=== PATIENT | male | born 1950 | race Caucasian/White ===

== ENCOUNTER 2017-02-05 14:32 | Emergency (ER) | payer OTHER ==
[2017-02-05 14:46] VITALS: TEMP 98.4; BMI 25.7
--- NOTE | 2017-02-05 15:14 | PDOC ---
History of Present Illness - General Chief Complaint: Hemorrhoids Stated Complaint: POSS. HEMORROIDES Time Seen by Provider: 02/05/17 15:07 History Source: Patient - History of Present Illness Initial Comments: 02/05/17 15:41 66M with pmh of controlled dm2 present to the ED complaining of chronic non- bleeding prolapsed external hemorrhoids. Patient states that he had them for the past year but got worse and worse for the past 3 weeks. Was given by his PCP an appointment to a clinic to evaluate blood work for surgery referral due next Monday . No constipation, soft stools. No straining on the toilet, no heavy lifting at work. 02/05/17 16:02 02/05/17 16:09 Past History - Past Medical History Allergies/Adverse Reactions: Allergies Allergy/AdvReac Type Severity Reaction Status Date / Time No Known Allergies Allergy Verified 02/05/17 14:46 Home Medications: Ambulatory Orders NK [No Known Home Medication] 02/05/17 Diabetes: Yes - Suicide/Smoking/Psychosocial Hx Smoking History: Never smoked Hx Alcohol Use: No Drug/Substance Use Hx: No Review of Systems - Review of Systems Able to Perform ROS?: Yes Is the patient limited O[place]i proficient: Yes Constitutional: No: Symptoms Reported HEENTM: No: Symptoms Reported Respiratory: No: Symptoms reported Cardiac (ROS): No: Symptoms Reported ABD/GI: No: Symptoms Reported, Blood Streaked Bowels, Constipated, Diarrhea, Rectal Bleeding : No: Symptoms Reported Musculoskeletal: No: Symptoms Reported Integumentary: No: Symptoms Reported *Physical Exam - Vital Signs Last Vital Signs Temp Pulse Resp BP Pulse Ox 98.4 F 88 20 132/79 99 02/05/17 14:42 02/05/17 14:42 02/05/17 14:42 02/05/17 14:42 02/05/17 14:42 - Physical Exam General Appearance: Yes: Nourished, Appropriately Dressed, Mild Distress HEENT: positive: EOMI, JACQUELINE Respiratory/Chest: positive: Lungs Clear, Normal Breath Sounds. negative: Chest Tender Cardiovascular: positive: Regular Rhythm, Regular Rate, S1, S2 Rectal Exam: positive: hemorrhoids (7cm large bilaterally pink with purplish zones. no bleeding) ED Treatment Course - LABORATORY CBC & Chemistry Diagram: 02/05/17 16:59 02/05/17 16:59 Medical Decision Making - Medical Decision Making 02/05/17 16:09 66M with pmh of controlled dm2 present to the ED complaining of chronic non- bleeding external prolapsed hemorrhoids. Spoke to Dr. Head surgery who advised that surgery on painful/inflamed hemorrhoids can be risky and damage the sphincter, Patient needs to be pain controlled and administered Sitz bath with Epson salts and given a high fiber diet. Labs drawn for anticipated admission to be evaluated by surgery. 02/05/17 19:13 Patient signed out to Dr. Clement *DC/Admit/Observation/Transfer Diagnosis at time of Disposition: Prolapsed external hemorrhoids
[2017-02-05] MEDS ORDERED: morphine CARPU-JECT 2 MG/1 ML DISP.SYRIN IVPUSH ONE (16:07)
[2017-02-05] MEDS ORDERED: LIDOCAINE HCL 5% TOP OINTMENT 50 GM TUBE TP ONE (16:08)
[2017-02-05] MEDS ORDERED: LIDOCAINE HCL 2% JELLY (5 ML/TUBE) ONE (17:02)
[2017-02-05] MEDS ORDERED: morphine CARPU-JECT 2 MG/1 ML DISP.SYRIN ONE (17:02)
[2017-02-05 17:20] LABS: EOSINOPHIL 2.8 % (0-4.5); MCH 27.5 pg (25.7-33.7); MCHC 33.7 g/dl (32.0-35.9); MEAN CELL VOLUME 81.8 fl (80-96); MEAN PLT VOLUME 7.9 fl (7.5-11.1); PLATELET COUNT 267 K/MM3 (134-434); RDW 13.5 % (11.9-15.9); WHITE BLOOD COUNT 8.5 K/mm3 (4.0-10.0)
[2017-02-05 17:33] LABS: INR 0.96 (0.82-1.09); PROTHROMBIN TIME (PATIENT) 10.8 SEC (9.98-11.88)
[2017-02-05 17:36] LABS: ACTIVATED PTT 32.8 SECONDS (26.9-34.4)
[2017-02-05 17:50] LABS: ALBUMIN 3.7 g/dl (3.4-5.0); ALK PHOS 60 U/L (45-117); ANION GAP 9 (8-16); BILIRUBIN,TOTAL 0.4 mg/dL (0.2-1.0); CALCIUM 8.8 mg/dL (8.5-10.1); CO2 26 mmol/L (21-32); CREATININE 0.7 mg/dL (0.7-1.3); GLUCOSE,RANDOM 136 mg/dL (74-106); SGPT/ALT 25 U/L (12-78); TOT PROT 7.6 g/dl (6.4-8.2)
[2017-02-05 17:57] LABS: SGOT/AST 16 U/L (15-37)
--- NOTE | 2017-02-05 19:37 | PDOC ---
*Physical Exam - Vital Signs Last Vital Signs Temp Pulse Resp BP Pulse Ox 98.4 F 76 16 134/89 97 02/05/17 14:42 02/05/17 18:37 02/05/17 18:37 02/05/17 18:37 02/05/17 18:37 ED Treatment Course - LABORATORY CBC & Chemistry Diagram: 02/05/17 16:59 02/05/17 16:59 - ADDITIONAL ORDERS Additional order review: Laboratory Results 02/05/17 02/05/17 16:59 16:59 PT with INR 10.80 INR 0.96 PTT (Actin FS) 32.8 Sodium 137 Potassium 4.7 Chloride 102 Carbon Dioxide 26 Anion Gap 9 BUN 17 Creatinine 0.7 Creat Clearance w eGFR > 60 Random Glucose 136 H Calcium 8.8 Total Bilirubin 0.4 AST 16 ALT 25 Alkaline Phosphatase 60 Total Protein 7.6 Albumin 3.7 02/05/17 16:59 RBC 5.90 H MCV 81.8 MCHC 33.7 RDW 13.5 MPV 7.9 Neutrophils % 49.0 Lymphocytes % 38.9 Monocytes % 8.3 Eosinophils % 2.8 Basophils % 1.0 - Medications Given in the ED: ED Medications Discontinued Medications Generic Name Dose Route Start Last Admin Trade Name Freq PRN Reason Stop Dose Admin Lidocaine HCl 1 applic 02/05/17 16:08 02/05/17 17:17 Xylocaine 5% Top. Ointment TP 02/05/17 16:09 1 applic ONCE ONE Administration Morphine Sulfate 2 mg 02/05/17 16:07 02/05/17 17:03 Morphine Injection - IVPUSH 02/05/17 16:08 2 mg ONCE ONE Administration Medical Decision Making - Medical Decision Making 02/05/17 19:36 Hospitalist refusing to admit patient for care of hemorrhoids. They are not thrombosed 02/05/17 20:[address] Zoran Mello was in the ER and I spoke to him about the case and he will see this pt in his office -he recommended placing ice on the prolapsed hemorrhoids , using colace -all labs except meq=[id number] were unremarkable 02/05/17 20:34 *DC/Admit/Observation/Transfer Diagnosis at time of Disposition: Prolapsed external hemorrhoids - Discharge Dispostion Disposition: HOME Condition at time of disposition: Stable Admit: No - Referrals Referrals: Donnie Blanco [Primary Care Provider] - Zoran Mello MD [Staff Physician] - - Patient Instructions Printed Discharge Instructions: DI for Hemorrhoids Additional Instructions: Please call Dr Mello's office tomorrow and make an office appointment lead section supervisor your prescriptions at your [facility] pharmacy Apply ice to the external hemorrhoids to help shrink them and provide some comfort Take colace daily to prevent hard stools Return to the ER for worsening symptoms
[2017-02-05 21:11] VITALS: BP 162/99; PULSE 91
--- NOTE | 2017-02-06 10:18 | CONS ---
DATE OF CONSULTATION: 02/05/2017 REASON FOR CONSULTATION: Hemorrhoids. EMERGENCY ROOM CONSULTATION REQUESTED BY: The emergency room physician. BRIEF HISTORY: This is a 66-year-old male with known problems with hemorrhoids who presents with 3-week history of anal pain and a mass located down below. He was noted to have a prolapse of hemorrhoids and request was made for an emergency room surgical evaluation. Patient states that he has been having these for the past year and the last 3 weeks they have worsened. He admits to eating a lot of meat and cheese. Denies eating a lot of fruits and vegetables. He denies diarrhea. Admits to some constipation. PAST MEDICAL HISTORY: Significant for diabetes. SOCIAL HISTORY: Negative for alcohol. Negative for tobacco. ALLERGIES: He has no known drug allergies. MEDICATIONS: He takes no home medications. REVIEW OF SYSTEMS: General: Denies fatigue or malaise. Cardiac: Denies chest pain or palpitations. Respiratory: Denies shortness of breath or wheeze. Gastrointestinal: As stated in HPI. Genitourinary: Denies dysuria. Musculoskeletal: Denies joint pain or joint swelling. Psychiatric: Denies anxiety, depression, or hearing voices. PHYSICAL EXAMINATION: General: This is a well-developed, well-nourished, 66-year-old male in no distress. Vital Signs: He is afebrile. HEENT: Head is normocephalic. Sclerae anicteric. Neck: Supple. Chest: Clear. Abdomen: Soft, nontender. Rectal: On anal exam, he has prolapse of all 3 hemorrhoid clusters with small areas of thrombosis located within the prolapse. There is also a portion of rectal prolapse with the hemorrhoids as well. Attempt is made to reduce the prolapse. However, the patient refuses this. Digital rectal exam is deferred due to pain. Extremities: Have no edema. REVIEW OF LABORATORY: His white blood cell count is 8.5, his hemoglobin is 16. Chemistry is unremarkable. ASSESSMENT: A 66-year-old male with prolapsed external hemorrhoids with some amount of thrombus. There is also a component of rectal prolapse as well. At this point, in the acute setting, any hemorrhoidectomy would be risky and would risk permanent incontinence. Patient should be treated conservatively and can follow with me or a colorectal surgeon. He can consider hemorrhoidectomy once the acute inflammatory phase is over, which would likely be in approximately 4-6 weeks. Recommend increased fruits and vegetables and water, to decrease meat and cheese. Recommend applying a water-soluble lubricant to his anus prior to defecation. Recommend avoiding toilet paper and using soap and water to clean himself after going to the bathroom. Would also recommend sitting in cool sitz baths with Epsom salt and applying ice. I discussed with ER physician and patient now likely will be discharged. DO CHIP GUTIERREZ/[id number]
--- NOTE | 2017-02-07 19:25 | EKG ---
Test Reason : Blood Pressure : / mmHG Vent. Rate : 077 BPM Atrial Rate : 077 BPM P-R Int : 222 ms QRS Dur : 086 ms QT Int : 338 ms P-R-T Axes : 053 -43 011 degrees QTc Int : 382 ms SINUS RHYTHM WITH 1ST DEGREE A-V BLOCK LEFT ANTERIOR FASCICULAR BLOCK LEFT ATRIAL ENLARGEMENT MINIMAL VOLTAGE CRITERIA FOR LVH, MAY BE NORMAL VARIANT NONSPECIFIC T WAVE ABNORMALITY ABNORMAL ECG NO PREVIOUS ECGS AVAILABLE REPEAT EKG IF CLINICALLY INDICATED Confirmed by BRANDY AGUILAR MD ([id number]) on 02/07/2017 7:25:16 PM Referred By: Confirmed By:BRANDY AGUILAR MD
== END 2017-02-05 21:11 | disposition home or self-care (01) ==
LOC: JER 14:32 → JERBED 18:05 → UNDOADMIN 18:05 → JER 21:11
PROC: 3E033NZ Introduction of Analgesics, Hypnotics, Sedatives into Peripheral Vein, Percutaneous Approach (ICD-10-PCS; principal; 2017-02-05)
DX: K64.8 Other hemorrhoids (principal)
CPT/HCPCS: 36415; 80053; 85025; 85610; 85730; 93005; 93010; 96374; 99284-25